=== PATIENT | male | born 1990 | race Caucasian/White ===

== ENCOUNTER 2020-11-12 12:58 | Outpatient (CLI) | payer OTHER, SELFPAY ==
[2020-11-12 13:58] LABS: Alanine Aminotransferase 93 U/L (4-50); Albumin Level 4.1 g/dL (3.5-5.1); Alkaline Phosphatase 112 U/L (38-126); Anion Gap 11 mmol/L (8-16); Aspartate Amino Transferase 54 U/L (17-59); Bilirubin,Total 0.8 mg/dL (0.2-1.3); Blood Urea Nitrogen 26 mg/dL (9-20); Calcium 8.8 mg/dL (8.4-10.2); Carbon Dioxide 26 mmol/L (22-30); Chloride 99 mmol/L (98-107); Estimated Glomerular Filt Rate > 60; Glucose 280 mg/dL (75-110); Potassium 4.6 mmol/L (3.4-5.0); Sodium 136 mmol/L (137-145)
== END 2020-11-12 12:59 | disposition home or self-care (01) ==
LOC: ANHLAB 13:06
DX: E84.9 Cystic fibrosis, unspecified (principal)
CPT/HCPCS: 36415; 80053

== ENCOUNTER 2020-11-26 16:28 | Outpatient (CLI) | payer OTHER, SELFPAY ==
[2020-11-26 16:53] LABS: Basophils Percent Auto 0.3 % (0.2-1.2); Eosinophils Absolute Auto 0.4 K/mm3 (0-0.3); Eosinophils Percent Auto 5.5 % (0-4.4); Hematocrit 42.6 % (42.0-52.0); Immature Granulocyte Absolute 0.01 K/mm3 (0.00-0.031); Immature Granulocyte Percent A 0.1 % (0-0.5); Lymphocytes Absolute Auto 1.66 K/mm3 (0.9-3.2); Lymphocytes Percent Auto 23.6 % (18.3-44.2); Mean Corpuscular HGB Conc 35.2 g/dl (32-36); Mean Corpuscular Hemoglobin 30.3 pg (26-34); Mean Corpuscular Volume 86.1 fl (80-100); Mean Platelet Volume 9.3 fl (7.4-10.4); Monocytes Absolute Auto 0.5 K/mm3 (0.1-0.6); Monocytes Percent Auto 7.1 % (2.6-8.5); Neutrophils Absolute Auto 4.5 K/mm3 (1.3-6.7); Neutrophils Percent Auto 63.4 % (45.5-73.1); Platelet Count Result 190 k/mm3 (150-375); Red Blood Count 4.95 M/mm3 (4.6-6.20); Red Cell Distribution Width 12.3 % (11.5-14.5)
[2020-11-26 17:04] LABS: Alanine Aminotransferase 288 U/L (4-50); Albumin Level 4.1 g/dL (3.5-5.1); Alkaline Phosphatase 134 U/L (38-126); Anion Gap 8 mmol/L (8-16); Aspartate Amino Transferase 177 U/L (17-59); Bilirubin,Total 0.7 mg/dL (0.2-1.3); Blood Urea Nitrogen 30 mg/dL (9-20); Calcium 9.3 mg/dL (8.4-10.2); Carbon Dioxide 27 mmol/L (22-30); Chloride 100 mmol/L (98-107); Estimated Glomerular Filt Rate > 60; Glucose 207 mg/dL (75-110); Potassium 4.3 mmol/L (3.4-5.0); Sodium 135 mmol/L (137-145)
== END 2020-11-26 16:29 | disposition home or self-care (01) ==
LOC: ANHLAB 16:33
DX: E84.9 Cystic fibrosis, unspecified (principal)
CPT/HCPCS: 36415; 80053; 85025

== ENCOUNTER 2020-11-30 15:18 | Outpatient (CLI) | payer OTHER, SELFPAY ==
[2020-11-30 16:17] LABS: Basophils Percent Auto 0.3 % (0.2-1.2); Eosinophils Absolute Auto 0.3 K/mm3 (0-0.3); Eosinophils Percent Auto 4.1 % (0-4.4); Hematocrit 42.3 % (42.0-52.0); Hemoglobin 15.2 g/dL (14.0-18.0); Immature Granulocyte Absolute 0.02 K/mm3 (0.00-0.031); Immature Granulocyte Percent A 0.3 % (0-0.5); Lymphocytes Absolute Auto 2.15 K/mm3 (0.9-3.2); Lymphocytes Percent Auto 32.9 % (18.3-44.2); Mean Corpuscular HGB Conc 35.9 g/dl (32-36); Mean Corpuscular Hemoglobin 30.4 pg (26-34); Mean Corpuscular Volume 84.6 fl (80-100); Mean Platelet Volume 9.4 fl (7.4-10.4); Monocytes Absolute Auto 0.4 K/mm3 (0.1-0.6); Monocytes Percent Auto 6.6 % (2.6-8.5); Neutrophils Absolute Auto 3.7 K/mm3 (1.3-6.7); Neutrophils Percent Auto 55.8 % (45.5-73.1); Platelet Count Result 166 k/mm3 (150-375); Red Cell Distribution Width 12.1 % (11.5-14.5); White Blood Count 6.5 K/mm3 (4.5-10.0)
[2020-11-30 16:52] LABS: Alanine Aminotransferase 205 U/L (4-50); Albumin Level 4.4 g/dL (3.5-5.1); Alkaline Phosphatase 129 U/L (38-126); Anion Gap 9 mmol/L (8-16); Aspartate Amino Transferase 58 U/L (17-59); Bilirubin,Total 0.5 mg/dL (0.2-1.3); Blood Urea Nitrogen 31 mg/dL (9-20); Calcium 9.7 mg/dL (8.4-10.2); Carbon Dioxide 26 mmol/L (22-30); Chloride 104 mmol/L (98-107); Estimated Glomerular Filt Rate > 60; Glucose 208 mg/dL (75-110); Potassium 4.2 mmol/L (3.4-5.0); Sodium 139 mmol/L (137-145)
== END 2020-11-30 15:19 | disposition home or self-care (01) ==
LOC: ANHLAB 15:22
DX: E84.9 Cystic fibrosis, unspecified (principal)
CPT/HCPCS: 36415; 80053; 85025

== ENCOUNTER 2020-12-04 14:47 | Outpatient (CLI) | payer OTHER, SELFPAY ==
[2020-12-04 15:08] LABS: Basophils Percent Auto 0.2 % (0.2-1.2); Eosinophils Absolute Auto 0.3 K/mm3 (0-0.3); Eosinophils Percent Auto 4.7 % (0-4.4); Hematocrit 39.5 % (42.0-52.0); Hemoglobin 14.3 g/dL (14.0-18.0); Immature Granulocyte Absolute 0.01 K/mm3 (0.00-0.031); Immature Granulocyte Percent A 0.2 % (0-0.5); Lymphocytes Absolute Auto 1.73 K/mm3 (0.9-3.2); Lymphocytes Percent Auto 32.7 % (18.3-44.2); Mean Corpuscular HGB Conc 36.2 g/dl (32-36); Mean Corpuscular Volume 85.7 fl (80-100); Mean Platelet Volume 9.3 fl (7.4-10.4); Monocytes Absolute Auto 0.4 K/mm3 (0.1-0.6); Monocytes Percent Auto 7.4 % (2.6-8.5); Neutrophils Absolute Auto 2.9 K/mm3 (1.3-6.7); Neutrophils Percent Auto 54.8 % (45.5-73.1); Platelet Count Result 117 k/mm3 (150-375); Red Blood Count 4.61 M/mm3 (4.6-6.20); Red Cell Distribution Width 12.2 % (11.5-14.5); White Blood Count 5.3 K/mm3 (4.5-10.0)
[2020-12-04 15:19] LABS: Alanine Aminotransferase 104 U/L (4-50); Albumin Level 3.8 g/dL (3.5-5.1); Alkaline Phosphatase 132 U/L (38-126); Anion Gap 5 mmol/L (8-16); Aspartate Amino Transferase 35 U/L (17-59); Bilirubin,Total 0.6 mg/dL (0.2-1.3); Blood Urea Nitrogen 26 mg/dL (9-20); Carbon Dioxide 25 mmol/L (22-30); Chloride 105 mmol/L (98-107); Estimated Glomerular Filt Rate > 60; Glucose 194 mg/dL (75-110); Sodium 135 mmol/L (137-145)
== END 2020-12-04 14:48 | disposition home or self-care (01) ==
LOC: ANHLAB 14:52
DX: E84.9 Cystic fibrosis, unspecified (principal)
CPT/HCPCS: 36415; 80053; 85025

== ENCOUNTER 2020-12-18 13:09 | Outpatient (CLI) | payer OTHER, SELFPAY ==
[2020-12-18 13:39] LABS: Basophils Percent Auto 0.2 % (0.2-1.2); Eosinophils Absolute Auto 0.3 K/mm3 (0-0.3); Eosinophils Percent Auto 7.1 % (0-4.4); Hematocrit 42.3 % (42.0-52.0); Hemoglobin 14.8 g/dL (14.0-18.0); Immature Granulocyte Absolute 0.01 K/mm3 (0.00-0.031); Immature Granulocyte Percent A 0.2 % (0-0.5); Lymphocytes Absolute Auto 1.05 K/mm3 (0.9-3.2); Lymphocytes Percent Auto 24.9 % (18.3-44.2); Mean Corpuscular Hemoglobin 30.2 pg (26-34); Mean Corpuscular Volume 86.3 fl (80-100); Mean Platelet Volume 9.6 fl (7.4-10.4); Monocytes Absolute Auto 0.3 K/mm3 (0.1-0.6); Monocytes Percent Auto 7.8 % (2.6-8.5); Neutrophils Absolute Auto 2.5 K/mm3 (1.3-6.7); Neutrophils Percent Auto 59.8 % (45.5-73.1); Platelet Count Result 174 k/mm3 (150-375); Red Cell Distribution Width 13.2 % (11.5-14.5); White Blood Count 4.2 K/mm3 (4.5-10.0)
[2020-12-18 13:52] LABS: Alanine Aminotransferase 74 U/L (4-50); Alkaline Phosphatase 114 U/L (38-126); Anion Gap 8 mmol/L (8-16); Aspartate Amino Transferase 38 U/L (17-59); Bilirubin,Total 0.7 mg/dL (0.2-1.3); Blood Urea Nitrogen 24 mg/dL (9-20); Calcium 9.2 mg/dL (8.4-10.2); Carbon Dioxide 24 mmol/L (22-30); Chloride 104 mmol/L (98-107); Estimated Glomerular Filt Rate > 60; Glucose 386 mg/dL (75-110); Potassium 4.4 mmol/L (3.4-5.0); Sodium 136 mmol/L (137-145)
== END 2020-12-18 13:10 | disposition home or self-care (01) ==
LOC: ANHLAB 13:12
DX: E84.9 Cystic fibrosis, unspecified (principal)
CPT/HCPCS: 36415; 80053; 85025

== ENCOUNTER 2021-10-19 16:32 | Outpatient (CLI) | payer OTHER, SELFPAY ==
[2021-10-19 17:30] LABS: Alanine Aminotransferase 207 U/L (4-50); Albumin Level 4.5 g/dL (3.5-5.1); Alkaline Phosphatase 118 U/L (38-126); Anion Gap 11 mmol/L (8-16); Aspartate Amino Transferase 84 U/L (17-59); Bilirubin,Total 0.7 mg/dL (0.2-1.3); Blood Urea Nitrogen 32 mg/dL (9-20); Calcium 9.6 mg/dL (8.4-10.2); Carbon Dioxide 25 mmol/L (22-30); Chloride 101 mmol/L (98-107); Estimated Glomerular Filt Rate > 60; Glucose 150 mg/dL (65-110); Potassium 4.2 mmol/L (3.4-5.0); Sodium 137 mmol/L (137-145)
[2021-10-19 17:49] LABS: Vitamin D 25 Hydroxy 37.7 ng/mL
[2021-10-22 05:28] LABS: GGT 29 U/L (3-90)
[2021-10-22 22:30] LABS: Alpha-Tocopherol 6.2 mg/L (5.7-19.9); Beta-Gamma Tocopherol 1.1 mg/L (<=4.3); Vitamin A 43 mcg/dL (38-98)
[2021-10-24 00:01] LABS: Immunoglobulin E 33 kU/L (<=114)
== END 2021-10-19 16:33 | disposition home or self-care (01) ==
LOC: ANHLAB 16:37
DX: E84.9 Cystic fibrosis, unspecified (principal)
CPT/HCPCS: 36415; 80053; 82306; 82785; 82977; 84446; 84590; 84597

== ENCOUNTER 2021-11-01 16:22 | Outpatient (CLI) | payer OTHER, SELFPAY ==
[2021-11-01 16:59] LABS: Alanine Aminotransferase 86 U/L (4-50); Albumin Level 4.7 g/dL (3.5-5.1); Alkaline Phosphatase 137 U/L (38-126); Aspartate Amino Transferase 43 U/L (17-59); Bilirubin,Total 0.9 mg/dL (0.2-1.3)
[2021-11-04 17:29] LABS: Vitamin K1 239 pg/mL (130-1500)
== END 2021-11-01 16:23 | disposition home or self-care (01) ==
DX: R74.01 Elevation of levels of liver transaminase levels (principal)
CPT/HCPCS: 36415; 80076; 84597

== ENCOUNTER 2022-08-15 11:21 | Outpatient (CLI) | payer OTHER, SELFPAY ==
[2022-08-15 12:15] LABS: Alanine Aminotransferase 45 U/L (6-50); Albumin Level 4.3 g/dL (3.5-5.1); Alkaline Phosphatase 121 U/L (38-126); Anion Gap 12 mmol/L (8-16); Aspartate Amino Transferase 21 U/L (17-59); Bilirubin,Total 1.1 mg/dL (0.2-1.3); Blood Urea Nitrogen 26 mg/dL (9-20); Calcium 9.2 mg/dL (8.4-10.2); Carbon Dioxide 27 mmol/L (22-30); Chloride 97 mmol/L (98-107); Estimated Glomerular Filt Rate > 60; Glucose 233 mg/dL (65-110); Potassium 3.7 mmol/L (3.4-5.0); Sodium 136 mmol/L (137-145)
[2022-08-15 13:16] LABS: Vitamin D 25 Hydroxy 14.6 ng/mL
[2022-08-17 07:15] LABS: GGT 32 U/L (3-90)
[2022-08-17 23:58] LABS: Alpha-Tocopherol 3.6 mg/L (5.7-19.9); Beta-Gamma Tocopherol <1.0 mg/L (<=4.3); Vitamin A 28 mcg/dL (38-98)
[2022-08-18 02:53] LABS: Immunoglobulin E 56 kU/L (<=114)
[2022-08-18 16:33] LABS: Vitamin K1 213 pg/mL (130-1500)
== END 2022-08-15 11:22 | disposition home or self-care (01) ==
LOC: ANHLAB 11:31
DX: R74.01 Elevation of levels of liver transaminase levels (principal); E84.9 Cystic fibrosis, unspecified
CPT/HCPCS: 36415; 80053; 82248; 82306; 82785; 82977; 84446; 84590; 84597